=== PATIENT | female | born 1995 | race Caucasian/White ===

== ENCOUNTER 2016-12-23 10:16 | Inpatient (IN) | payer BC, OTHER ==
[2016-12-23] MEDS ORDERED: LIDOCAINE 1% (PF) 10 MG/ML (30 ML SDV) SQ PRN (12:12)
[2016-12-23] MEDS ORDERED: METHYLERGONOVINE 0.2 MG/ML 1 ML AMP IM PRN (12:12)
[2016-12-23] MEDS ORDERED: TERBUTALINE 1 MG/ML VIAL SQ PRN (12:12)
[2016-12-23] MEDS ORDERED: OXYTOCIN 10 UNIT/ML 1 ML VIAL IM PRN (12:12)
[2016-12-23] MEDS ORDERED: CARBOPROST TROMETHAMINE 250 MCG/ML 1 ML AMP IM PRN (12:12)
[2016-12-23] MEDS ORDERED: OXYTOCIN 30 UNITS/500 ML NS 30 UNIT in SALINE 1 500ML.BAG IV SCH (12:15)
[2016-12-23] MEDS ORDERED: LACTATED RINGERS 1,000 ML IV SCH (12:15)
[2016-12-23 12:27] LABS: Basophils % (A) 0 %; CH 29.4; CHCM 34.2; Eosinophils % (A) 0 %; HCT 41.8 % (34.0-46.0); HDW 2.76; HGB 13.9 gm/dL (11.4-16.0); Luc % (Auto) 1; Lymphocytes # (A) 1.6 k/uL (1.0-4.8); Lymphocytes % (A) 12 %; MCH 28.7 pg (25.0-35.0); MCHC 33.2 g/dL (31.0-37.0); MCV 86.6 fL (80.0-100.0); Mean Platelet Volume 7.4; Monocytes # (A) 0.6 k/uL (0-1.0); Monocytes % (A) 4 %; Neutrophils # (A) 11.8 k/uL (1.3-7.7); Neutrophils % (A) 82 %; RBC 4.83 m/uL (3.80-5.40); RDW 13.2 % (11.5-15.5); WBC 14.3 k/uL (3.8-10.6); WBC (Perox) 14.83
[2016-12-23 12:29] VITALS: BMI 43.4
[2016-12-23] MEDS: LACTATED RINGERS 1,000 ML IV SCH ×2 (12:56→18:42)
[2016-12-23] MEDS ORDERED: BUPIVACAINE (PF) 0.25% 30 ML VIAL ONE (13:00)
[2016-12-23] MEDS ORDERED: SODIUM CHLORIDE 0.9% 100 ML BAG ONE (13:00)
[2016-12-23] MEDS ORDERED: fentaNYL (PF) 50 MCG/ML 5 ML AMP ONE (13:00)
--- NOTE | 2016-12-23 13:27 | P.HPOB ---
History of Present Illness H&P Date: 12/23/16 Chief Complaint: Contractions. This patient is a pleasant 21-year-old 2 para 0 female estimated date of confinement 12/28/2016 estimated gestational age 39-2/7 weeks who presents to labor and delivery with complaints of regular contractions. Patient's cervix in the office couple days ago was closed is now 3-4 cm dilated and she is thought to be in early labor. care has been uncomplicated. Review of Systems Constitutional: Denies chills, Denies fever Ears, nose, mouth and throat: Denies headache, Denies sore throat Cardiovascular: Denies chest pain, Denies shortness of breath Respiratory: Denies cough Gastrointestinal: Reports heartburn Genitourinary: Reports Menstruation: Reports amenorrhea Musculoskeletal: Denies myalgias Integumentary: Denies pruritus, Denies rash Neurological: Denies numbness, Denies weakness Psychiatric: Denies anxiety, Denies depression Endocrine: Denies fatigue, Denies weight change Past Medical History Past Medical History: No Reported History History of Any Multi-Drug Resistant Organisms: None Reported Additional Past Surgical History / Comment(s): wisdom teeth age 18 Past Anesthesia/Blood Transfusion Reactions: No Reported Reaction Past Psychological History: No Psychological Hx Reported Smoking Status: Never smoker Past Alcohol Use History: None Reported Past Drug Use History: None Reported - Past Family History Mother Family Medical History: Diabetes Mellitus, Osteoarthritis (OA), Thyroid Disorder Medications and Allergies Home Medications Medication Instructions Recorded Confirmed Type No Known Home Medications [No 12/23/16 12/23/16 History Known Home Medications] Allergies Allergy/AdvReac Type Severity Reaction Status Date / Time No Known Allergies Allergy Verified 12/23/16 10:55 Exam - Vital Signs Vital signs: Vital Signs Temp Pulse Resp BP Pulse Ox 12/23/16 12:23 96.3 F L 83 17 133/76 100 Intake and Output 12/22/16 12/23/16 12/23/16 22:59 06:59 14:59 Other: # Voids 1 Weight 104.326 kg Patient Weight 12/24/16 06:59 Weight 104.326 kg - OBG Physical Exam Abdomen: bowel sounds normal Vulva: both: normal Vagina: normal moisture, no discharge Cervix: Cervix is 3-4 cm dilated 50% effaced -2 station. Uterus: enlarged (Fundal height is 38 cm.) Results blood work shows she is O positive, rubella immune, RPR nonreactive, HIV nonreactive, hepatitis B-, Glucola was normal, group B strep was negative, ultrasounds have been normal. Result Diagrams: 12/23/16 12:10 Abnormal Lab Results - Last 24 Hours (Table) 12/23/16 Range/Units 12:10 WBC 14.3 H (3.8-10.6) k/uL Neutrophils # 11.8 H (1.3-7.7) k/uL Assessment and Plan (1) Third trimester Narrative/Plan: This is a pleasant 21-year-old 2 para 0 female 39-2/7 weeks gestation who presents to labor and delivery in early active labor. Plan is artificial rupture membranes and anticipate vaginal delivery Status: Acute (2) Normal labor Status: Acute
[2016-12-23] MEDS ORDERED: ceFAZolin 2 GM in SODIUM CHLORIDE 0.9% 100 ML IVPB ONE (22:41)
[2016-12-23] MEDS ORDERED: CITRIC ACID-SODIUM CITRATE 15 ML CUP PO ONE (22:41)
[2016-12-23] MEDS ORDERED: MORPHINE SULFATE (PF) 0.3 MG/0.3 ML SYR ONE (22:50)
[2016-12-23] MEDS ORDERED: KETOROLAC 30 MG/ML 1 ML VIAL ONE (22:50)
[2016-12-23] MEDS ORDERED: ONDANSETRON 4 MG/2 ML VIAL ONE (22:50)
[2016-12-23] MEDS ORDERED: OXYTOCIN 10 UNIT/ML 1 ML VIAL IM ONE (22:50)
[2016-12-23] MEDS ORDERED: NALBUPHINE 10 MG/ML AMPUL ONE (22:50)
[2016-12-23] MEDS ORDERED: diphenhydrAMINE 50 MG/ML 1 ML VIAL IVP PRN (23:34)
[2016-12-23] MEDS ORDERED: METOCLOPRAMIDE 5 MG/ML 2 ML VIAL IVP PRN (23:34)
[2016-12-23] MEDS ORDERED: diphenhydrAMINE 25 MG CAP PO PRN (23:34)
[2016-12-23] MEDS ORDERED: ZOLPIDEM 5 MG TAB PO PRN (23:34)
[2016-12-23] MEDS ORDERED: SIMETHICONE 80 MG CHEWABLE PO PRN (23:34)
[2016-12-23] MEDS ORDERED: ACETAMINOPHEN TAB 325 MG TAB PO PRN (23:34)
--- NOTE | 2016-12-23 23:52 | P.OP ---
Date of Procedure: 12/23/16 Preoperative Diagnosis: #1: 39-2/7 weeks #2: Labor #3: Nonreassuring heart tones remote from delivery Postoperative Diagnosis: #1: Same. #2: Occiput posterior presentation Procedure(s) Performed: Primary low transverse section. Anesthesia: spinal Surgeon: Jameson Mcpherson Lead Javascript Developer #1: Eric Whitfield Estimated Blood Loss (ml): 600 Pathology: other (Placenta) Condition: stable Disposition: floor Indications for Procedure: Please see dictated H&P for intimate details of this patient's admission. Brief summary is a pleasant 21-year-old 2 para 0 female 39-2/7 weeks gestation admitted to labor and delivery in active labor. Patient does progress in labor gets to complete. Patient however began pushing and every time she began pushing had bradycardia to the 80s and 90s. This does resolve with position changes but the baby appears to be intolerant of pushing and she is remote from delivery. At this time I recommend she proceed with section. She does understand the surgery and risks including risks of infection, bleeding, possible injury to bowel, bladder, vessels, and other organs. She understands the risk of DVT and pulmonary embolism. All the patient's questions are answered written consent is obtained. Operative Findings: This is a vigorous viable female Apgars 9 and 9 delivery time was 2305 hrs. Infant was straight occiput posterior presentation. Description of Procedure: This patient is a Armijo catheter placed to straight drain. She subsequently taken to the operating room where she sat up and spinal anesthetic is administered without incident. An adequate level of anesthesia she has abdominal prep and drape. Scalpels and taken Pfannenstiel skin incision is made. A second scalpel is taken down the fascia and the fascia scored with a scalpel. Fascial incision extended bilaterally using the Nair scissors. The fascial incision is then dissected off the rectus muscles sharply. The peritoneum was then entered sharply. Bladder blade is then placed. Bladder peritoneum was then taken sharply off the lower uterine segment. Scalpels and taken a low transverse uterine incision is then made. Using a hemostat I into the uterus bluntly and there is loss of clear fluid this incision is extended bluntly. Infant's the be straight occiput posterior presentation was delivered up through the incision. Mouth and nares are bulb suctioned. Is no evidence of a nuchal cord. Then have delivery the anterior and posterior shoulder and rest this 's body. This is a vigorous viable female infant Apgars are 9 and 9 delivery time is 2305 hrs. After delivery of the the umbilical cord is doubly clamped and cut. The placenta is then manually extracted intact. Uterus is then externalized and uterine incision demarcated with Santana clamps. Uterus is then closed using 0 Vicryl running locked fashion 2 layers. Good hemostasis is noted. Bladder peritoneum was then reapproximated using a 3-0 Vicryl. Excess fluid is removed from and pelvis. Uterus tubes and ovaries appear normal for term gestation. Is done the uterus placed back into the abdomen. Parietal peritoneum was then closed using 0 Vicryl running fashion. Rectus muscles reapproximated in 0 Vicryl interrupted fashion. Fascia is then closed using 0 PDS. Fascial incision is intact and hemostatic. Subcutaneous tissues and closed using a 3-0 Vicryl. Skin is and closed using jaelyn and a sterile dressing is applied. All counts are correct 3. There are no complications. Infant and mother are taken the birthing suite in satisfactory condition.
[2016-12-24] MEDS: OXYTOCIN 30 UNITS/500 ML NS 30 UNIT in SALINE 1 500ML.BAG IV SCH ×3 (00:45→01:50)
[2016-12-24] MEDS ORDERED: METHYLERGONOVINE 0.2 MG/ML 1 ML AMP IM ONE (00:46)
[2016-12-24 01:05] LABS: Basophils % (A) 0 %; CH 29.3; CHCM 33.7; Eosinophils % (A) 0 %; HCT 29.3 % (34.0-46.0); HDW 2.71; Luc # (Auto) 0.08; Luc % (Auto) 0; Lymphocytes # (A) 0.9 k/uL (1.0-4.8); Lymphocytes % (A) 4 %; MCH 29.4 pg (25.0-35.0); MCHC 33.5 g/dL (31.0-37.0); MCV 87.7 fL (80.0-100.0); Mean Platelet Volume 8.3; Monocytes # (A) 0.9 k/uL (0-1.0); Monocytes % (A) 4 %; Neutrophils % (A) 92 %; RBC 3.34 m/uL (3.80-5.40); RDW 13.2 % (11.5-15.5); WBC 23.9 k/uL (3.8-10.6); WBC (Perox) 24.68
[2016-12-24 01:08] LABS: HGB 9.8 gm/dL (11.4-16.0)
--- NOTE | 2016-12-24 01:31 | P.PN ---
Progress Note - Text I was called to see the patient in regards to excessive vaginal bleeding, hypotension, and tachycardia. Examination shows uterine fundus to be high and a uterus and vault filled with clots consistent with uterine atony. Vigorous exploration and fundal massage expressed all the clots. Patient is given a dose of Methergine and IV Pitocin. This seemed to correct the vaginal bleeding. CBC shows hemoglobin 9.8 however I feel it is significantly lower therefore I do think she would benefit at this time due to her symptoms she received 2 units of packed red blood cells. I did discuss this with the patient and her and they agreed.
[2016-12-24] MEDS: LACTATED RINGERS 1,000 ML IV SCH ×3 (05:05→15:17)
--- NOTE | 2016-12-24 07:08 | P.PNOBGPC ---
Subjective - Subjective Patient reports: Reports appetite normal, Reports pain well controlled : doing well Objective - Vital Signs Latest vital signs: Vital Signs Temp Pulse Pulse Resp BP BP Pulse Ox 12/24/16 04:58 98.0 F 140 H 16 125/54 12/24/16 03:48 98.1 F 150 H 17 75/51 98 12/24/16 03:28 97.6 F 150 H 14 72/49 12/24/16 03:18 98.3 F 147 H 12 76/46 12/24/16 03:16 98.3 F 158 H 14 78/49 12/24/16 02:38 97.5 F L 163 H 18 72/50 99 12/24/16 02:08 98.2 F 158 H 14 78/48 12/24/16 01:58 97.6 F 139 H 14 82/52 12/24/16 01:30 97.9 F 160 H 16 82/49 100 12/24/16 01:00 150 H 14 116/68 99 12/24/16 00:55 118 H 12/24/16 00:52 128 H 16 108/65 99 12/24/16 00:48 131 H 12/24/16 00:47 141 H 16 108/64 12/24/16 00:30 155 H 16 119/72 97 12/24/16 00:15 150 H 16 71/50 12/24/16 00:00 105 H 14 117/66 12/23/16 23:45 102 H 16 116/64 90 L 12/23/16 23:30 97.0 F L 100 16 123/67 100 12/23/16 12:23 96.3 F L 83 17 133/76 100 Intake and Output 12/23/16 12/24/16 12/24/16 22:59 06:59 14:59 Intake Total 750 Balance 750 Intake: Intake, IV Titration 130 Amount Oxytocin 30 Units/500 ml 130 Ns 30 unit In Saline 1 500ml.bag @ 120 mls/hr IV .Q4H10M [facility] Rx#: [id number] Blood Product 620 Rc As-1 Unit 310 [id number] Rc Pheresis 2 As3 Unit 310 [id number] - Exam Lungs: bilateral: normal Chest: Normal S1, Normal S2 Extremities: Present: normal Abdomen: Present: normal appearance, soft. Absent: distention, tenderness Incision: Present: normal, intact Uterus: Present: normal, firm - Labs Labs: Abnormal Lab Results - Last 24 Hours (Table) 12/23/16 12/24/16 12/24/16 Range/Units 12:10 00:52 00:52 WBC 14.3 H 23.9 H (3.8-10.6) k/uL RBC 3.34 L (3.80-5.40) m/uL Hgb 9.8 L D (11.4-16.0) gm/dL Hct 29.3 L (34.0-46.0) % Neutrophils # 11.8 H 22.0 H (1.3-7.7) k/uL Lymphocytes # 0.9 L (1.0-4.8) k/uL Crossmatch See Detail Assessment and Plan (1) Third trimester Narrative/Plan: This is postoperative day #1. Per previous note, patient had a significant episode of uterine atony after her section with significant hemorrhage. Patient was given Methergine and IV Pitocin as well as evacuation of the clots with uterine massage. Patient had tachycardia and hypotension and therefore although her hemoglobin was 9.8 needed 2 units of packed red blood cells. Repeat CBC is pending. Patient's blood pressure is better this morning however she is still somewhat tachycardic which is expected. Patient is having good urine output. Uterus is firm nontender and her incision is intact and dry. Plan today is to continue the Armijo catheter until lunch to monitor her urine output, encourage ambulation with assistance, and continue close observation of her bleeding. There is no evidence of further bleeding at this time. Current Visit: Yes Status: Acute Code(s): Z33.1 - STATE, INCIDENTAL SNOMED Code(s): 65911079 (2) Normal labor Current Visit: Yes Status: Acute Code(s): O80 - ENCOUNTER FOR FULL-TERM UNCOMPLICATED DELIVERY; Z37.9 - OUTCOME OF DELIVERY, UNSPECIFIED SNOMED Code(s ): 54211667 (3) Atony of uterus with hemorrhage, delivered, current hospitalization Current Visit: Yes Status: Acute Code(s): O72.1 - OTHER IMMEDIATE HEMORRHAGE SNOMED Code(s): 20637934
[2016-12-24] MEDS: KETOROLAC 30 MG/ML 1 ML VIAL IVP PRN ×3 (07:23→20:52)
[2016-12-24] MEDS: ceFAZolin 2 GM in SODIUM CHLORIDE 0.9% 100 ML IVPB SCH ×2 (07:25→15:48)
[2016-12-24 08:01] LABS: CH 29.3; CHCM 33.7; HCT 29.7 % (34.0-46.0); HDW 2.88; HGB 9.9 gm/dL (11.4-16.0); MCH 29.1 pg (25.0-35.0); MCHC 33.4 g/dL (31.0-37.0); MCV 87.1 fL (80.0-100.0); Mean Platelet Volume 8.1; RBC 3.41 m/uL (3.80-5.40); RDW 14.2 % (11.5-15.5)
[2016-12-24] MEDS: IRON AG/C/B12/CA/SUC.ACID/STOM 1 EACH TAB PO SCH (08:05)
[2016-12-24] MEDS: METHYLERGONOVINE 0.2 MG TAB PO SCH ×3 (08:14→23:07)
[2016-12-24 08:17] LABS: WBC 31.6 k/uL (3.8-10.6)
[2016-12-24 08:38] LABS: Add Differential Manual Differential
[2016-12-24 08:42] LABS: Band Neutrophils % 9.5 %; Manual Review Performed; Nucleated Red Blood Cells 0 /100 WBC (0-0); Total Cells Counted 200
[2016-12-24] MEDS: SENNOSIDES-DOCUSATE SODIUM 1 EACH TAB PO SCH ×2 (09:00→20:52)
[2016-12-24] MEDS ORDERED: METHYLERGONOVINE 0.2 MG TAB PO SCH (09:00)
--- NOTE | 2016-12-24 12:57 | P.PN ---
Progress Note - Text Date:12/24 Time:1232 Patient is status post . Patient seen this morning with VAS score of 3.no c/o of pruritus, c/o nausea/vomiting, comfortable and doing well today.
[2016-12-24] MEDS ORDERED: ONDANSETRON 4 MG/2 ML VIAL IVP PRN (13:02)
[2016-12-24] MEDS ORDERED: MORPHINE SULFATE 4 MG/ML SYRINGE IVP PRN (13:02)
[2016-12-24] MEDS ORDERED: NALOXONE 0.4 MG/ML 1 ML VIAL IV PRN (13:02)
[2016-12-24] MEDS ORDERED: NALBUPHINE 10 MG/ML AMPUL IV PRN (13:02)
[2016-12-24] MEDS ORDERED: Acetaminophen-Codeine 300-30mg TAB PO PRN (13:22)
[2016-12-24 16:24] VITALS: RESP 16
[2016-12-25] MEDS ORDERED: ceFAZolin 2 GM in SODIUM CHLORIDE 0.9% 100 ML IVPB SCH ×2
[2016-12-25] MEDS: Acetaminophen-Codeine 300-30mg TAB PO PRN ×3 (01:06→21:01)
[2016-12-25] MEDS: LACTATED RINGERS 1,000 ML IV SCH (06:02)
--- NOTE | 2016-12-25 07:43 | P.PNOBGPC ---
Subjective - Subjective Patient reports: Reports appetite normal, Reports voiding normally, Reports pain well controlled, Reports ambulating normally : doing well Objective - Vital Signs Latest vital signs: Vital Signs Temp Pulse Resp BP Pulse Ox 12/25/16 00:00 97.0 F L 139 H 16 108/54 12/24/16 20:00 97.6 F 133 H 16 125/65 12/24/16 16:00 98.8 F 141 H 16 128/60 99 12/24/16 12:00 99.2 F 131 H 17 119/65 99 12/24/16 09:51 139 H 18 118/67 98 Intake and Output 12/24/16 12/25/16 12/25/16 22:59 06:59 14:59 Output Total 600 750 700 Balance -600 -750 -700 Output: Urine 600 750 700 Uretheral (Armijo) 750 Other: # Voids 0 - Exam Lungs: bilateral: normal Chest: Normal S1, Normal S2 Extremities: Present: normal Abdomen: Present: normal appearance, soft. Absent: distention, tenderness Incision: Present: normal, dry, intact Uterus: Present: normal, firm - Labs Labs: Abnormal Lab Results - Last 24 Hours (Table) 12/24/16 Range/Units 07:25 WBC 31.6 H* (3.8-10.6) k/uL RBC 3.41 L (3.80-5.40) m/uL Hgb 9.9 L (11.4-16.0) gm/dL Hct 29.7 L (34.0-46.0) % Neutrophils # (Manual) 28.9 H (1.3-7.7) k/uL Monocytes # (Manual) 1.1 H (0-1.0) k/uL Assessment and Plan (1) Third trimester Narrative/Plan: Postoperative day #2. Vital signs are stable and she is afebrile. Uterus is firm nontender and her incision is intact and dry. CBC yesterday did show her hemoglobin to be stable her white count was elevated but this was expected. I did continue her on antibiotics but she has no evidence of infection at this time. Plan is to check a CBC today, discontinue her antibiotics, and continue routine care. Current Visit: Yes Status: Acute Code(s): Z33.1 - STATE, INCIDENTAL SNOMED Code(s): 94414548 (2) Normal labor Current Visit: Yes Status: Acute Code(s): O80 - ENCOUNTER FOR FULL-TERM UNCOMPLICATED DELIVERY; Z37.9 - OUTCOME OF DELIVERY, UNSPECIFIED SNOMED Code(s ): 12237825 (3) Atony of uterus with hemorrhage, delivered, current hospitalization Current Visit: Yes Status: Acute Code(s): O72.1 - OTHER IMMEDIATE HEMORRHAGE SNOMED Code(s): 64435225
[2016-12-25 08:04] LABS: Basophils % (A) 0 %; CH 29.2; CHCM 33.3; Eosinophils % (A) 0 %; HCT 21.2 % (34.0-46.0); HDW 2.94; Luc % (Auto) 1; Lymphocytes # (A) 1.8 k/uL (1.0-4.8); Lymphocytes % (A) 10 %; MCH 28.9 pg (25.0-35.0); MCHC 32.8 g/dL (31.0-37.0); Monocytes # (A) 0.9 k/uL (0-1.0); Monocytes % (A) 5 %; Neutrophils # (A) 14.4 k/uL (1.3-7.7); Neutrophils % (A) 83 %; RBC 2.41 m/uL (3.80-5.40); RDW 14.7 % (11.5-15.5); WBC 17.3 k/uL (3.8-10.6); WBC (Perox) 18.13
[2016-12-25 08:09] LABS: HGB 6.9 gm/dL (11.4-16.0)
[2016-12-25] MEDS: IBUPROFEN 600 MG TAB PO PRN ×3 (08:16→23:41)
[2016-12-25] MEDS: SENNOSIDES-DOCUSATE SODIUM 1 EACH TAB PO SCH ×2 (08:17→20:59)
[2016-12-25] MEDS: IRON AG/C/B12/CA/SUC.ACID/STOM 1 EACH TAB PO SCH (08:49)
[2016-12-26] MEDS: Acetaminophen-Codeine 300-30mg TAB PO PRN (06:09)
--- NOTE | 2016-12-26 06:44 | P.PNOBGPC ---
Subjective - Subjective Patient reports: Reports appetite normal, Reports voiding normally, Reports pain well controlled, Reports ambulating normally : doing well Objective - Vital Signs Latest vital signs: Vital Signs Temp Pulse Resp BP Pulse Ox 12/25/16 23:57 98.7 F 129 H 16 125/65 12/25/16 16:00 98.8 F 129 H 16 126/72 100 12/25/16 08:27 98.5 F 134 H 16 104/53 Intake and Output 12/25/16 12/25/16 12/26/16 14:59 22:59 06:59 Output Total 1250 Balance -1250 Output: Urine 1250 Other: # Voids 1 2 - Exam Lungs: bilateral: normal Chest: Normal S1, Normal S2 Extremities: Present: normal Abdomen: Present: normal appearance, soft. Absent: distention, tenderness Incision: Present: normal, dry, intact Uterus: Present: normal, firm - Labs Labs: Abnormal Lab Results - Last 24 Hours (Table) 12/25/16 Range/Units 07:49 WBC 17.3 H (3.8-10.6) k/uL RBC 2.41 L (3.80-5.40) m/uL Hgb 6.9 L* D (11.4-16.0) gm/dL Hct 21.2 L (34.0-46.0) % Neutrophils # 14.4 H (1.3-7.7) k/uL Assessment and Plan (1) Third trimester Narrative/Plan: Postoperative day 3. Patient is resting without complaints. Uterus is firm nontender and her incision is intact and dry. Hemoglobin yesterday was 6.9 and white count went down to 17. Today it is pending. I feel this most recent CBC is accurate reflection of her current status. Patient is ambulating and urinating without difficulty. She is adequate pain control. Patient does wish to go home today. My impression is that this patient is stable for discharge home. We'll continue routine care this morning and check a CBC discharge home later this morning. Current Visit: Yes Status: Acute Code(s): Z33.1 - STATE, INCIDENTAL SNOMED Code(s): 78249882 (2) Normal labor Current Visit: Yes Status: Acute Code(s): O80 - ENCOUNTER FOR FULL-TERM UNCOMPLICATED DELIVERY; Z37.9 - OUTCOME OF DELIVERY, UNSPECIFIED SNOMED Code(s ): 29076742 (3) Atony of uterus with hemorrhage, delivered, current hospitalization Current Visit: Yes Status: Acute Code(s): O72.1 - OTHER IMMEDIATE HEMORRHAGE SNOMED Code(s): 26181002
--- NOTE | 2016-12-26 06:48 | P.DS ---
Providers Date of admission: 12/23/16 11:26 Expected date of discharge: 12/26/16 Attending physician: Jameson Mcpherson Primary care physician: Stated None - Discharge Diagnosis(es) (1) Third trimester Current Visit: Yes Status: Acute (2) Normal labor Current Visit: Yes Status: Acute (3) Atony of uterus with hemorrhage, delivered, current hospitalization Current Visit: Yes Status: Acute Hospital Course: Please see dictated H&P for intimate details of this patient's condition. Brief summary this pleasant 21-year-old 2 para 0 female admitted to labor and delivery in active labor. Patient's subsequent goes on to have a primary section for persistent occiput posterior presentation and nonreassuring heart tones. Immediately patient did have episode of severe uterine atony with significant blood loss requiring 2 units of packed red blood cells. Patient was given IV antibiotics at that time as well. She subsequently did well after this and by postoperative 3 was felt to be stable for discharge home. He will return this dictation was 6.9. Patient is discharged home to see me on Monday. It had a long discussion with her and her about her anemia is activity restrictions. Procedures: Primary low transverse section. Patient Condition at Discharge: Fair Plan - Discharge Summary New Discharge Prescriptions: Acetaminophen-Codeine 300-30mg [Tylenol w/codeine #3] 1 - 2 each PO Q4HR PRN # 40 tab PRN Reason: Pain 1-5 Ibuprofen [Motrin] 600 mg PO Q6HR PRN #40 tab PRN Reason: Mild Pain Or Fever >= 100.5 Iron Ag/C/B12/Ca/Suc.acid/Stom [Chromagen LF] 1 each PO DAILY #30 tab Discharge Medication List Acetaminophen-Codeine 300-30mg [Tylenol w/codeine #3] 1 - 2 each PO Q4HR PRN # 40 tab 12/26/16 [Rx] Ibuprofen [Motrin] 600 mg PO Q6HR PRN #40 tab 12/26/16 [Rx] Iron Ag/C/B12/Ca/Suc.acid/Stom [Chromagen LF] 1 each PO DAILY #30 tab 12/26/16 [ Rx] Follow up Appointment(s)/Referral(s): Jameson Mcpherson MD [STAFF PHYSICIAN] - 1 Week Patient Instructions/Handouts: Anemia (DC), (DC) Activity/Diet/Wound Care/Special Instructions: No strenuous activity or heavy lifting for 6 weeks. Please call if any fever, chills, excessive vaginal bleeding, and/or abdominal pain. Discharge Disposition: HOME SELF-CARE
[2016-12-26 08:06] LABS: Basophils % (A) 0 %; CH 28.9; CHCM 32.7; Eosinophils % (A) 0 %; HDW 2.88; Luc # (Auto) 0.24; Luc % (Auto) 2; Lymphocytes # (A) 2.1 k/uL (1.0-4.8); Lymphocytes % (A) 17 %; MCH 28.6 pg (25.0-35.0); MCHC 32.2 g/dL (31.0-37.0); MCV 88.9 fL (80.0-100.0); Monocytes # (A) 0.5 k/uL (0-1.0); Monocytes % (A) 4 %; Neutrophils # (A) 9.4 k/uL (1.3-7.7); Neutrophils % (A) 77 %; RBC 2.13 m/uL (3.80-5.40); RDW 14.2 % (11.5-15.5); WBC 12.2 k/uL (3.8-10.6); WBC (Perox) 12.69
[2016-12-26 08:17] LABS: HCT 18.9 % (34.0-46.0); HGB 6.1 gm/dL (11.4-16.0)
[2016-12-26] MEDS: SENNOSIDES-DOCUSATE SODIUM 1 EACH TAB PO SCH (08:44)
[2016-12-26] MEDS: IRON AG/C/B12/CA/SUC.ACID/STOM 1 EACH TAB PO SCH (08:44)
[2016-12-26 09:17] VITALS: BP 114/61; PULSE 114; TEMP 97.5
== END 2016-12-26 13:38 | disposition home or self-care (01) | DRG 765 ==
LOC: FBPOP 10:16 → 4FBP 11:26
PROVIDERS: ADMIT Obstetrics & Gynecology; ATTEND Obstetrics & Gynecology
PROC: 10D00Z1 Extraction of Products of Conception, Low, Open Approach (ICD-10-PCS; principal; 2016-12-23 22:50)
PROC: 30233N1 Transfusion of Nonautologous Red Blood Cells into Peripheral Vein, Percutaneous Approach (ICD-10-PCS; 2016-12-24)
DX: O76 Abnormality in fetal heart rate and rhythm complicating labor and delivery (principal); O72.1 Other immediate postpartum hemorrhage; O99.02 Anemia complicating childbirth; D64.9 Anemia, unspecified; Z37.0 Single live birth; Z3A.39 39 weeks gestation of pregnancy
CPT/HCPCS: 85025; 86850; 86900; 86901; 86920; 88307

== ENCOUNTER 2018-07-20 00:13 | Emergency (ER) | payer BC, OTHER ==
[2018-07-20 00:34] VITALS: BP 137/93; PULSE 102; RESP 18; TEMP 98.2
== END 2018-07-20 01:25 ==
LOC: EC 00:13
DX: Z02.9 Encounter for administrative examinations, unspecified (principal); M79.604 Pain in right leg

== ENCOUNTER 2019-06-26 12:11 | Emergency (ER) | payer OTHER ==
[2019-06-26 12:25] VITALS: BP 129/104; PULSE 106; RESP 16; TEMP 98.7
--- NOTE | 2019-06-26 12:50 | XR ---
EXAMINATION TYPE: XR ankle complete RT DATE OF EXAM: 06/26/2019 COMPARISON: NONE HISTORY: 24-year-old female and swelling after rolling injury TECHNIQUE: 3 views FINDINGS: Ankle mortise is congruent however, there is slight loss of the distal tibiofibular overlap. Mild ant erior soft tissue swelling is noted. Talar dome is intact. Small delineation to the Achilles tendon. Subtalar joint alignment. No acute fracture, subluxation, dislocation. IMPRESSION: Slight loss of the distal tibiofibular overlap on the mortise view. Correlate for possible high ankle sprain.
--- NOTE | 2019-06-26 13:02 | ED ---
Lower Extremity Injury HPI - General Chief Complaint: Extremity Injury, Lower Stated Complaint: Ankle injury-[facility] Time Seen by Provider: 06/26/19 12:21 Source: patient, RN notes reviewed Mode of arrival: ambulatory Limitations: no limitations - History of Present Illness Initial Comments: 24-year-old female presents emergency Department with chief complaint of right ankle injury. Patient states she was transported patient states that she stepped another home and rolled her ankle. Patient placed in Jorge wrap on it which initially helped but states is more sore now. Patient had no prior ankle injuries no paresthesias no pain proximal to her right ankle. - Related Data Home Medications Medication Instructions Recorded Confirmed Acetaminophen Tab [Tylenol Tab] 1,000 mg PO Q6HR PRN 06/26/19 06/26/19 Multivitamins, Thera [Multivitamin 1 tab PO DAILY 06/26/19 06/26/19 (formulary)] Previous Rx's Medication Instructions Recorded Ibuprofen [Motrin] 600 mg PO Q8HR PRN #30 tab 06/26/19 Allergies Allergy/AdvReac Type Severity Reaction Status Date / Time cephalexin [From Keflex] Allergy Rash/Hives Verified 06/26/19 12:31 Review of Systems ROS Statement: Those systems with pertinent positive or pertinent negative responses have been documented in the HPI. ROS Other: All systems not noted in ROS Statement are negative. Past Medical History Past Medical History: No Reported History History of Any Multi-Drug Resistant Organisms: None Reported Past Surgical History: Section Additional Past Surgical History / Comment(s): wisdom teeth age 18, salivary duct Past Anesthesia/Blood Transfusion Reactions: No Reported Reaction Past Psychological History: No Psychological Hx Reported Smoking Status: Never smoker Past Alcohol Use History: None Reported Past Drug Use History: None Reported - Past Family History Mother Family Medical History: Diabetes Mellitus, Osteoarthritis (OA), Thyroid Disorder General Exam Limitations: no limitations General appearance: alert, in no apparent distress Head exam: Present: atraumatic, normocephalic, normal inspection Neck exam: Present: normal inspection. Absent: tenderness, meningismus, lymphadenopathy Respiratory exam: Present: normal lung sounds bilaterally. Absent: respiratory distress, wheezes, rales, rhonchi, stridor Cardiovascular Exam: Present: regular rate, normal rhythm, normal heart sounds. Absent: systolic murmur, diastolic murmur, rubs, gallop, clicks Extremities exam: Present: other (Right ankle tenderness to lateral malleoli region, neurovascular intact no foot tenderness no proximal tib-fib tenderness) Back exam: Absent: CVA tenderness (R), CVA tenderness (L) Neurological exam: Present: alert, oriented X3, CN II-XII intact Course Vital Signs 06/26/19 12:21 Temperature 98.7 F Pulse Rate 106 H Respiratory 16 Rate Blood Pressure 129/104 O2 Sat by Pulse 98 Oximetry Medical Decision Making - Medical Decision Making 24-year-old female presents emergency Department for right ankle injury. Patient has a right ankle sprain she is neurovascularly intact. Patient will be discharged return parameters were discussed. Disposition Clinical Impression: Right ankle sprain Disposition: HOME SELF-CARE Condition: Stable Instructions (If sedation given, give patient instructions): Ankle Sprain (ED) Additional Instructions: Please return to the Emergency Department if symptoms worsen or any other concerns. Prescriptions: Ibuprofen [Motrin] 600 mg PO Q8HR PRN #30 tab PRN Reason: Pain Is patient prescribed a controlled substance at d/c from ED?: No Referrals: None,Stated [Primary Care Provider] - 1-2 days Time of Disposition: 13:01
== END 2019-06-26 13:10 | disposition home or self-care (01) ==
LOC: EC 12:11
DX: S93.401A Sprain of unspecified ligament of right ankle, initial encounter (principal); Z88.1 Allergy status to other antibiotic agents; X50.1XXA Overexertion from prolonged static or awkward postures, initial encounter; Y93.01 Activity, walking, marching and hiking; Y92.89 Other specified places as the place of occurrence of the external cause; Y99.0 Civilian activity done for income or pay
CPT/HCPCS: 99283

== ENCOUNTER 2021-03-09 15:49 | Emergency (ER) | payer OTHER ==
[2021-03-09 16:32] VITALS: BP 135/95; PULSE 103; RESP 20; TEMP 97.9
--- NOTE | 2021-03-09 16:50 | XR ---
EXAMINATION TYPE: XR shoulder complete LT DATE OF EXAM: 03/09/2021 COMPARISON: NONE HISTORY: Shoulder pain TECHNIQUE: 3 views FINDINGS: I see no fracture nor dislocation. Glenohumeral joint is intact. Soft tissues appear normal . There are no pathologic calcifications. IMPRESSION: Negative left shoulder exam.
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
== END 2021-03-09 17:34 | disposition home or self-care (01) ==
LOC: EC 15:49
DX: S49.92XA Unspecified injury of left shoulder and upper arm, initial encounter (principal); F17.290 Nicotine dependence, other tobacco product, uncomplicated; W50.0XXA Accidental hit or strike by another person, initial encounter; Z79.1 Long term (current) use of non-steroidal anti-inflammatories (NSAID)
CPT/HCPCS: 99283

== ENCOUNTER → 2022-07-23 | Outpatient (CLI) | payer BC | END | disposition home or self-care (01) | LOC: LABWHC1 08:51 | PROVIDERS: ATTEND Obstetrics & Gynecology | DX: Z53.9 Procedure and treatment not carried out, unspecified reason (principal) ==

== ENCOUNTER → 2022-12-19 | Outpatient (CLI) | payer BC ==
--- NOTE | 2022-12-20 09:55 | FL ---
EXAMINATION TYPE: FL hysterosalpingography DATE OF EXAM: 12/19/2022 CLINICAL HISTORY: Secondary infertility. History of unable to get for roughly 2 years. TECHNIQUE: Fluoroscopy. COMPARISON: None. FINDINGS: Fluoroscopic guidance was provided during hysterosalpingogram procedure performed by jacob gil A total of 1 minute 55 seconds of fluoroscopic time was utilized during the procedure and 6 spot images are acquired. Procedure explained to patient. Benefits, alternatives, and risks were discussed. Informed consent wa s obtained. Preprocedure feeder operator image shows no obvious abnormality. Speculum was introduced using sterile techniqu e. The cervical os was cleansed with Betadine. Procedure was difficult as cervical during attempted m anipulation and passage of catheter always pointed posterior and inferior with difficulty maintaining position to advance catheter. Catheter was inflated once in the vaginal canal with successful contra st opacification of the vagina extending into the uterus. There is free flow and spillage from the ri ght fallopian tube which appears within normal limits. Uterine contour appears within normal limits. Partial visualization of left fallopian tube noted. Recurrent injection was unsuccessful and lead to contrast leak. At this point catheter was reinserted successfully into the endometrial canal. There i s unsuccessful filling of the endometrium along with again right fallopian tube with free spill. Ther e is then eventual complete fill of the left fallopian tube with some free spillage identified. At this point balloon is deflated and catheter is removed. Speculum was removed. Patient tolerated procedure well without any immediate complication. Patient was kept in the radiolog y Department for short stay after procedure and then discharged home in stable and satisfactory condi tion. IMPRESSION: As Above.
== END | disposition home or self-care (01) ==
LOC: RADUSWWP 12:38
PROVIDERS: ATTEND Obstetrics & Gynecology
DX: N97.9 Female infertility, unspecified (principal)
CPT/HCPCS: 58340; 74740; Q9967

== ENCOUNTER 2024-02-20 11:41 | Outpatient (CLI) | payer BC, OTHER ==
[2024-02-20 12:55] LABS: Basophils % (A) 0 %; Eosinophils % (A) 0 %; HCT 36.8 % (34.0-46.0); HGB 12.3 gm/dL (11.4-16.0); Lymphocytes # (A) 1.5 k/uL (1.0-4.8); Lymphocytes % (A) 12 %; MCH 29.3 pg (25.0-35.0); MCHC 33.5 g/dL (31.0-37.0); MCV 87.4 fL (80.0-100.0); Mean Platelet Volume 9.1; Monocytes # (A) 0.7 k/uL (0-1.0); Monocytes % (A) 6 %; Neutrophils # (A) 10.4 k/uL (1.3-7.7); Neutrophils % (A) 81 %; Platelet Count 259 k/uL (150-450); RBC 4.21 m/uL (3.80-5.40); RDW 13.7 % (11.5-15.5); WBC 12.8 k/uL (3.8-10.6)
[2024-02-20 13:09] LABS: ALT 24 U/L (4-34); AST 22 U/L (14-36); African American GFR (CKD) >90 (>60 ml/min/1.73 sqM); Blood Urea Nitrogen 9 mg/dL (7-17); LDH 167 U/L (120-246); Non-African American GFR(CKD) >90 (>60 ml/min/1.73 sqM); Uric Acid 4.4 mg/dL (3.7-7.4)
[2024-02-20 13:27] LABS: Appearance,Urine Cloudy (Clear); Bilirubin,Urine Negative (Negative); Blood,Urine Negative (Negative); Color,Urine Colorless; Glucose,Urine (UA) Negative (Negative); Ketones,Urine Negative (Negative); Leukocyte Esterase,Urine Negative (Negative); Nitrite,Urine Negative (Negative); Protein,Urine Negative (Negative); RBC,Urine 1 /hpf (0-5); Specific Gravity,Urine 1.003 (1.001-1.035); Squamous Epithelial Cell,Urine 4 /hpf (0-4); Urobilinogen,Urine <2.0 mg/dL (<2.0); WBC,Urine 3 /hpf (0-5)
[2024-02-20 14:07] LABS: Creatinine,Urine Random 17.1 mg/dL; Protein/Creatinine Ratio,Urine 0.819
[2024-02-20 16:03] VITALS: BP 142/93; PULSE 111; RESP 16; TEMP 97.2
--- NOTE | 2024-02-23 11:03 | P.MSEPDOC ---
Presenting Problems - Arrival Data Date of Arrival on Unit: 02/20/24 Time of Arrival on Unit: 11:41 Mode of Transport: Ambulatory - Complaint OB-Reason for Admission/Chief Complaint: PIH Medical History - Information : 4 Para: 1 Term: 1 : 0 Abortions: Spontaneous or Elective: 2 Number of Living Children: 1 - Gestational Age Gestational Age by ASYA (wks/days): 36 Weeks and 6 Days Review of Systems - Review of Systems Constitutional: No problems Breast: No problems ENT: No problems Cardiovascular: No problems Respiratory: No problems Gastrointestinal: No problems Genitourinary: No problems Musculoskeletal: No problems Neurological: No problems Skin: No problems Vital Signs - Temperature Temperature: 97.2 F Temperature Source: Axillary - Pulse Right Brachial Pulse Rate: 111 Pulse Assessment Method: Automatic Cuff - Respirations Respiratory Rate: 16 Oxygen Delivery Method: Room Air - Blood Pressure Right Arm Blood Pressure: 142/93 Blood Pressure Mean: 109 Blood Pressure Source: Automatic Cuff Medical Screen Scoring - Assessment - Baby A Baseline FHR: 125 Heart Rate - NICHD Category: Category I (Normal) NST: Reactive Physician Notification - Physician Notified Physician Notified Date: 02/20/24 Physician Notified Time: 12:16 Physician: Eric Whitfield Order Received: Yes - Notification Comment Comment: d/c home Maternal Triage Index - Maternal Triage Index Presenting for scheduled procedure w/no complaint: No - Stat/Priority 1 Stat Priority 1: No - Urgent/Priority 2 Urgent Priority 2: No - Prompt/Priority 3 Prompt Priority 3: Yes Criteria Met for Priority 3: B/P 142/93. B/P 135/84. B/P 124/70. asymptomatic Disposition - Disposition OB Disposition: Discharge to home Discharge Date: 02/20/24 Discharge Time: 14:23 I agree with the RN Medical Screening Exam: Yes Physician's MSE Comment: I have neither seen nor examined the patient. Case reviewed; plan agreed upon as documented in EMR&OBIX.: Yes Diagnosis: RELATED CONDITIONS, UNSPECIFIED, THIRD TRIMESTER
== END 2024-02-20 14:23 | disposition home or self-care (01) ==
LOC: FBPOP 11:41
PROVIDERS: ATTEND Obstetrics & Gynecology
DX: O13.3 Gestational [pregnancy-induced] hypertension without significant proteinuria, third trimester (principal); Z3A.36 36 weeks gestation of pregnancy; Z88.1 Allergy status to other antibiotic agents
CPT/HCPCS: 59025; 81001; 82565; 82570; 83615; 84156; 84450; 84460; 84520; 84550; 85025; 99215

== ENCOUNTER 2024-02-29 14:59 | Inpatient (IN) | payer BC, OTHER ==
[2024-02-29] MEDS ORDERED: miSOPROStoL 200 MCG TAB PO PRN (15:37)
[2024-02-29] MEDS ORDERED: GENTAMICIN IVPB ONE (15:37)
[2024-02-29] MEDS ORDERED: TRANEXAMIC 1,000 MG/100ML-NACL 1,000 MG in EMPTY BAG 1 BAG IV PRN (15:37)
[2024-02-29] MEDS ORDERED: METHYLERGONOVINE 0.2 MG/ML 1 ML AMP IM PRN (15:37)
[2024-02-29] MEDS ORDERED: OXYTOCIN 10 UNIT/ML 1 ML VIAL IM PRN (15:37)
[2024-02-29] MEDS ORDERED: CARBOPROST TROMETHAMINE 250 MCG/ML 1 ML AMP IM PRN (15:37)
[2024-02-29] MEDS ORDERED: SODIUM CHLORIDE 0.9% IVPB ONE (15:37)
[2024-02-29] MEDS: LACTATED RINGERS 1,000 ML IV ONE (15:54)
[2024-02-29 16:21] LABS: Basophils % (A) 0 %; Eosinophils % (A) 0 %; HCT 38.6 % (34.0-46.0); HGB 12.9 gm/dL (11.4-16.0); Lymphocytes # (A) 1.7 k/uL (1.0-4.8); Lymphocytes % (A) 15 %; MCH 29.1 pg (25.0-35.0); MCHC 33.4 g/dL (31.0-37.0); MCV 87.2 fL (80.0-100.0); Mean Platelet Volume 9.9; Monocytes # (A) 0.6 k/uL (0-1.0); Monocytes % (A) 5 %; Neutrophils # (A) 8.8 k/uL (1.3-7.7); Neutrophils % (A) 78 %; Platelet Count 266 k/uL (150-450); RBC 4.42 m/uL (3.80-5.40); RDW 13.9 % (11.5-15.5); WBC 11.2 k/uL (3.8-10.6)
[2024-02-29 16:25] LABS: Appearance,Urine Cloudy (Clear); Bacteria,Urine Rare /hpf; Bilirubin,Urine Negative (Negative); Blood,Urine Negative (Negative); Color,Urine Colorless; Glucose,Urine (UA) Negative (Negative); Ketones,Urine Negative (Negative); Leukocyte Esterase,Urine Trace (Negative); Mucus,Urine Rare /hpf; Nitrite,Urine Negative (Negative); Protein,Urine Negative (Negative); RBC,Urine 2 /hpf (0-5); Specific Gravity,Urine 1.005 (1.001-1.035); Squamous Epithelial Cell,Urine 18 /hpf (0-4); Urobilinogen,Urine <2.0 mg/dL (<2.0); WBC,Urine 6 /hpf (0-5)
[2024-02-29 16:31] LABS: ALT 26 U/L (4-34); AST 23 U/L (14-36); African American GFR (CKD) >90 (>60 ml/min/1.73 sqM); Blood Urea Nitrogen 10 mg/dL (7-17); LDH 148 U/L (120-246); Non-African American GFR(CKD) >90 (>60 ml/min/1.73 sqM); Uric Acid 4.6 mg/dL (3.7-7.4)
[2024-02-29 16:40] LABS: INR 0.8 (<1.2); Prothrombin Time 9.5 sec (10.0-12.5)
[2024-02-29] MEDS: CITRIC ACID-SODIUM CITRATE 15 ML CUP PO ONE (17:29)
[2024-02-29] MEDS: CLINDAMYCIN 900 MG in DEXTROSE 5% IN WATER 50 ML IVPB ONE (17:29)
[2024-02-29] MEDS: LACTATED RINGERS 1,000 ML IV SCH ×2 (17:30→23:45)
[2024-02-29] MEDS: GENTAMICIN 400 MG in SODIUM CHLORIDE 0.9% 100 ML IVPB ONE (17:54)
[2024-02-29] MEDS ORDERED: NALBUPHINE 10 MG/ML (10 ML MDV) ONE (18:01)
[2024-02-29] MEDS ORDERED: ONDANSETRON 4 MG/2 ML VIAL ONE (18:01)
[2024-02-29] MEDS ORDERED: MORPHINE SULFATE (PF) 0.3 MG/0.3 ML SYR ONE (18:01)
[2024-02-29] MEDS ORDERED: OXYTOCIN 30 UNITS/500 ML NS BAG IV ONE (18:01)
--- NOTE | 2024-02-29 18:54 | P.OP ---
Date of Procedure: 02/29/24 Preoperative Diagnosis: IUP at 38-1/7 weeks, gestational hypertension, history of x 1, desires repeat Postoperative Diagnosis: Same Procedure(s) Performed: Repeat section Anesthesia: spinal Surgeon: Dione Tilley Acetylene Cutter #1: Yeimy Velez Estimated Blood Loss (ml): 310 IV fluids (ml): 700 Urine output (ml): 150 (Clear yellow) Pathology: other (Placenta) Condition: stable Disposition: observation Indications for Procedure: 29-year-old G4, P1 at 30-1/7 weeks with noted elevated blood pressures. Given patient's diagnosis of gestational hypertension recommendation is made for delivery. Patient has noted to be symptomatic with a headache in addition. Patient has a prior history of a section and desires repeat. Operative Findings: Normal uterus tubes and ovaries were appreciated, vacuum assist delivery of a viable female at 1822, weight of 6 pounds 8 ounces, Apgars of 8 and 9 at 1 and 5 minutes respectively. Description of Procedure: The patient was prepped and draped in the usual fashion after spinal anesthesia was administered by anesthesia department. A Pfannenstiel incision was made and extended of the abdominal cavity without difficulty. The bladder peritoneum was elevated and incised and reflected distally. A 2 cm incision was made in the transverse plane of the lower uterine segment to enter the uterus at which time clear fluid was noted. The incision was extended in both directions using the bandage scissors. The head was encountered within the field and delivered up and through the incision via vacuum assist, where the nose and mouth were thoroughly suctioned. Remainder of the infant was delivered onto the surgical field where the cord was doubly clamped, cut, and the was passed for resuscitative measures with weight and Apgars as noted above. The placenta was delivered manually, intact, and was grossly normal with a grossly normal three- vessel cord. The uterus was exteriorized and the interior cavity of the uterus swept of any remaining placental and membranous fragments with a laparotomy sponge. The margins of the incision were grasped with Santana clamps and the incision closed in 2 layers. First layer was a running locking layer of 0 Vicryl from margin to margin followed by a second layer of imbricating 0 Vicryl from margin to margin. Any small points of bleeding were then made hemostatic with the Bovie. Once hemostasis was achieved, the posterior cul-de-sac was suctioned with a guard and the uterine and ovarian findings are as noted above. The uterus was replaced within the abdominal cavity and the gutters swept of any remaining blood fluid or clot. The incision was again reexamined and hemostasis was noted to be excellent. Any small point of bleeding were made hemostatic with the Bovie. Once hemostasis was achieved the parietal peritoneum was loosely reapproximated. The layer of muscles were examined and made hemostatic with the Bovie. Attention was then turned to the fascia which was closed with a running stitches of 0 Vicryl proceeding from 1 lateral edge to the other. The subcutaneous tissues were irrigated, made hemostatic with the Bovie, and reapproximated with a running stitch of 30 Vicryl. The skin was reapproximated with 4-0 Vicryl. Estimated blood loss for the case was approximately 310 mL. All sponge instrument and needle counts are correct. There were no complications. The patient tolerated the procedure well and proceeded to the recovery room in stable condition. Both mother and infant are resting comfortably in recovery.
--- NOTE | 2024-02-29 18:55 | P.HPOB ---
History of Present Illness H&P Date: 02/29/24 Chief Complaint: IUP at 38-1/7 weeks, gestational hypertension 29-year-old 4 para 1-0-2-1 at 38-1/7 weeks presents to labor and delivery from the office after noted elevated blood pressures 140s over 86 with noted had a headache. Patient states she did have an elevated blood pressure at home 150/100. Patient states she had a headache at that time as well. Patient has a history of a primary and wishes repeat. Patient has been receiving routine care that has been essentially uncomplicated up to this point. Patient notes good movement, she denies vaginal bleeding or loss of fluid. On blood work this patient has a blood type of O+, rubella status immune, hepatitis B surface engine negative, HIV negative, RPR is nonreactive, grew beta strep culture is negative. Review of Systems Constitutional: Denies chills, Denies fatigue, Denies fever Ears, nose, mouth and throat: Reports headache Cardiovascular: Reports leg edema Respiratory: Denies dyspnea Gastrointestinal: Denies nausea, Denies vomiting Genitourinary: Reports Past Medical History Past Medical History: No Reported History History of Any Multi-Drug Resistant Organisms: None Reported Past Surgical History: Section Additional Past Surgical History / Comment(s): wisdom teeth age 18, salivary duct Past Anesthesia/Blood Transfusion Reactions: No Reported Reaction Past Psychological History: No Psychological Hx Reported Smoking Status: Never smoker Past Alcohol Use History: None Reported Past Drug Use History: None Reported - Past Family History Mother Family Medical History: Diabetes Mellitus, Hypertension, Osteoarthritis (OA), Thyroid Disorder Father Additional Family Medical History / Comment(s): MVA Medications and Allergies Home Medications Medication Instructions Recorded Confirmed Type Multivitamins, Thera [Multivitamin 1 tab PO DAILY 06/26/19 02/29/24 History (formulary)] Allergies Allergy/AdvReac Type Severity Reaction Status Date / Time cephalexin [From Keflex] Allergy Rash/Hives Verified 02/29/24 15:36 Exam Osteopathic Statement: *. No significant issues noted on an osteopathic structu ral exam other than those noted in the History and Physical/Consult. Vital Signs Temp Pulse Resp BP Pulse Ox 02/29/24 16:04 97.9 F 102 H 16 140/85 97 Intake and Output 02/29/24 02/29/24 02/29/24 06:59 14:59 22:59 Other: Weight 123.831 kg Targeted physical exam is performed this date General is a well-nourished well- developed female in no acute distress, breathing is noted to be nonlabored, heart has a regular and rhythm, abdomen is gravid and appropriate for gestational age, cervical exam is deferred, heart tones are noted to be category 1 and she is not chad. Results Result Diagrams: 02/29/24 15:56 02/29/24 15:52 Abnormal Lab Results - Last 24 Hours (Table) 02/29/24 02/29/24 Range/Units 15:52 15:56 WBC 11.2 H (3.8-10.6) k/uL Neutrophils # 8.8 H (1.3-7.7) k/uL PT 9.5 L (10.0-12.5) sec Assessment and Plan (1) Term Current Visit: Yes Status: Acute Code(s): Z34.90 - ENCNTR FOR SUPRVSN OF NORMAL , UNSP, UNSP TRIMESTER SNOMED Code(s): 19854058 (2) Gestational hypertension Current Visit: Yes Status: Acute Code(s): O13.9 - GESTATIONAL HTN W/O SIGNIFICANT PROTEINURIA, UNSP TRIMESTER SNOMED Code(s): 32252400 (3) History of section Current Visit: Yes Status: Acute Code(s): Z98.891 - HISTORY OF UTERINE SCAR FROM PREVIOUS SURGERY SNOMED Code(s): 985486844 Plan: 29-year-old -0-2-1 at 38-1/7 weeks presents to the hospital from the office for repeat section. Patient has had elevated blood pressures at home elevated in the office 140/86. Patient does admit to headache. Patient is counseled on gestational hypertension and need for delivery given his symptomatology. Patient states understanding. Patient is counseled on repeat section. Risks are reviewed including but not limited to infection, bleeding, damage to bladder, bowel, injury. Patient states understanding, anesthesia is notified. Will proceed with repeat section.
[2024-02-29] MEDS ORDERED: SIMETHICONE 80 MG CHEWABLE PO PRN (18:57)
[2024-02-29] MEDS ORDERED: ONDANSETRON 4 MG/2 ML VIAL IVP PRN (18:57)
[2024-02-29] MEDS ORDERED: ZOLPIDEM 5 MG TAB PO PRN (18:57)
[2024-02-29] MEDS ORDERED: diphenhydrAMINE 50 MG CAP PO PRN (18:57)
[2024-02-29] MEDS ORDERED: NALOXONE 0.4 MG/ML 1 ML VIAL IV PRN ×2 (18:57→19:37)
[2024-02-29] MEDS ORDERED: diphenhydrAMINE 25 MG CAP PO PRN (18:57)
[2024-02-29] MEDS ORDERED: diphenhydrAMINE 50 MG/ML 1 ML VIAL IVP PRN (18:57)
[2024-02-29] MEDS: ACETAMINOPHEN IV (For NPO) 1,000 MG in EMPTY BAG 1 BAG IVPB SCH (20:07)
[2024-02-29] MEDS: ACETAMINOPHEN TAB 500 MG TAB PO SCH (20:25)
[2024-02-29] MEDS: METOCLOPRAMIDE 5 MG/ML 2 ML VIAL IVP PRN (20:50)
[2024-02-29] MEDS: SENNOSIDES-DOCUSATE SODIUM 1 EACH TAB PO SCH (21:29)
[2024-02-29 22:09] LABS: Creatinine,Urine Random 21.6 mg/dL; Protein/Creatinine Ratio,Urine 0.509
[2024-02-29] MEDS: IBUPROFEN 600 MG TAB PO SCH (23:45)
[2024-02-29] MEDS: IBUPROFEN IV 800 MG in SODIUM CHLORIDE 0.9% 250 ML IV SCH (23:59)
[2024-03-01] MEDS: diphenhydrAMINE 50 MG/ML 1 ML VIAL IVP PRN (01:06)
[2024-03-01 07:21] LABS: Basophils % (A) 0 %; Eosinophils % (A) 0 %; HCT 37.1 % (34.0-46.0); Lymphocytes # (A) 1.2 k/uL (1.0-4.8); Lymphocytes % (A) 12 %; MCH 28.6 pg (25.0-35.0); MCHC 32.3 g/dL (31.0-37.0); MCV 88.5 fL (80.0-100.0); Mean Platelet Volume 9.1; Monocytes # (A) 0.4 k/uL (0-1.0); Monocytes % (A) 4 %; Neutrophils # (A) 8.2 k/uL (1.3-7.7); Neutrophils % (A) 83 %; Platelet Count 216 k/uL (150-450); RDW 13.6 % (11.5-15.5); WBC 9.9 k/uL (3.8-10.6)
[2024-03-01] MEDS: MULTIVITAMINS, THERA 1 EACH TAB PO SCH (09:26)
--- NOTE | 2024-03-01 09:45 | P.PNOBGPC ---
Subjective - Subjective Principal diagnosis: Postop day 1, repeat section, gestational hypertension Interval history: Patient is doing well postoperatively. She is ambulating and voiding without difficulty. She is tolerating a regular diet without nausea or vomiting. She denies concerns this morning. Positive flatus. Patient reports: Reports appetite normal, Reports voiding normally, Reports pain well controlled, Reports ambulating normally [place]: doing well Objective - Vital Signs Latest vital signs: Vital Signs Temp Pulse Resp BP Pulse Ox 03/01/24 08:12 98.4 F 90 14 111/90 03/01/24 06:00 16 03/01/24 04:00 98.0 F 92 17 111/78 96 03/01/24 02:00 16 03/01/24 00:14 96 03/01/24 00:00 97.9 F 70 16 138/71 96 02/29/24 22:57 90 16 02/29/24 22:37 16 02/29/24 20:57 90 16 107/58 97 02/29/24 20:42 96.8 F L 88 16 105/58 96 02/29/24 20:27 88 16 117/57 96 02/29/24 20:12 97.4 F L 86 16 117/60 97 02/29/24 19:57 86 16 121/60 97 02/29/24 19:42 97.5 F L 86 16 119/59 97 02/29/24 19:27 83 16 121/58 96 02/29/24 19:12 97.5 F L 83 16 117/61 96 02/29/24 18:56 97.1 F L 92 16 129/75 97 02/29/24 16:04 97.9 F 102 H 16 140/85 97 Intake and Output 02/29/24 03/01/24 03/01/24 22:59 06:59 14:59 Intake Total 700 Output Total 810 200 Balance -110 -200 Intake: IV 700 Output: Urine 450 200 Uretheral (Armijo) 200 Output, Quantitative 360 Blood Loss Other: Voiding Method Toilet Weight 123.831 kg - Exam Extremities: Present: normal Abdomen: Present: normal appearance Incision: Present: normal, dry, intact Uterus: Present: normal, firm - Labs Labs: Abnormal Lab Results - Last 24 Hours (Table) 04/04/24 04/04/24 04/04/24 Range/Units 15:52 15:53 15:56 WBC 11.2 H (3.8-10.6) k/uL Neutrophils # 8.8 H (1.3-7.7) k/uL PT 9.5 L (10.0-12.5) sec Urine Appearance Cloudy H (Clear) Ur Leukocyte Esterase Trace H (Negative) Urine WBC 6 H (0-5) /hpf Ur Squamous Epith Cells 18 H (0-4) /hpf Urine Bacteria Rare H (None) /hpf Urine Mucus Rare H (None) /hpf 04// Range/Units 06:40 WBC (3.8-10.6) k/uL Neutrophils # 8.2 H (1.3-7.7) k/uL PT (10.0-12.5) sec Urine Appearance (Clear) Ur Leukocyte Esterase (Negative) Urine WBC (0-5) /hpf Ur Squamous Epith Cells (0-4) /hpf Urine Bacteria (None) /hpf Urine Mucus (None) /hpf Assessment and Plan (1) Term Current Visit: Yes Status: Acute Code(s): Z34.90 - ENCNTR FOR SUPRVSN OF NORMAL , UNSP, UNSP TRIMESTER SNOMED Code(s): 15593244 (2) Gestational hypertension Current Visit: Yes Status: Acute Code(s): O13.9 - GESTATIONAL HTN W/O SIGNIFICANT PROTEINURIA, UNSP TRIMESTER SNOMED Code(s): 10287798 (3) History of section Current Visit: Yes Status: Acute Code(s): Z98.891 - HISTORY OF UTERINE SCAR FROM PREVIOUS SURGERY SNOMED Code(s): 069913100 (4) Status post section Current Visit: Yes Status: Acute Code(s): Z98.891 - HISTORY OF UTERINE SCAR FROM PREVIOUS SURGERY SNOMED Code(s): 483840932 Plan: Patient is doing well postoperatively. Plan to continue routine postoperative care and anticipate discharge home tomorrow.
--- NOTE | 2024-03-01 11:07 | P.PN ---
Progress Note - Text Progress Note Date: 03/01/24 Postoperative day 1 status post section under spinal anesthesia, and intrathecal morphine given for postoperative analgesia, patient doing well, there is no anesthesia related complications, Patient had no headache, vital signs stable , Assessment and plan= postop day 1 status post , doing well there is no anesthesia related complication.
[2024-03-01 21:01] VITALS: RESP 16
[2024-03-02 08:54] VITALS: BP 132/84; PULSE 88; TEMP 97.8
--- NOTE | 2024-03-02 09:30 | P.DS ---
Providers Date of admission: 02/29/24 14:59 Expected date of discharge: 03/02/24 Attending physician: Dione Tilley Primary care physician: Dione Tilley - Discharge Diagnosis(es) (1) Term Current Visit: Yes Status: Acute (2) Gestational hypertension Current Visit: Yes Status: Acute (3) History of section Current Visit: Yes Status: Acute (4) Status post section Current Visit: Yes Status: Acute Hospital Course: 29-year-old G4 now P2022 that presented to labor and delivery at 37-1/7 weeks for repeat section. Patient had been monitoring blood pressures, blood pressure was noted to be 150/100 at home patient admitted to a headache in addition. Patient's blood pressure in the office 140s over 90s. Patient was counseled for repeat section secondary to diagnosis of gestational hypertension. For full details in this patient please see the dictated history and physical. Patient was admitted and repeat section was completed without difficulty. For full details on the please see the dictated operative report. Patient delivered a viable female via vacuum assist at 1822, weight of 6 pounds 8 ounces, Apgars of 8 and 9 at 1 and 5 minutes respectively. Patient has done well postoperatively. On this postoperative day #2 she is ambulating and voiding without difficulty. She is tolerating a regular diet without nausea or vomiting. States her pain is well-controlled. She denies concerns and would like discharge home. Patient Condition at Discharge: Good Plan - Discharge Summary New Discharge Prescriptions: No Action Multivitamins, Thera [Multivitamin (formulary)] 1 tab PO DAILY Discharge Medication List Multivitamins, Thera [Multivitamin (formulary)] 1 tab PO DAILY 06/26/19 [History] Follow up Appointment(s)/Referral(s): Dione Tilley DO [Primary Care Provider] - 2 Weeks Patient Instructions/Handouts: (DC), (GEN) Activity/Diet/Wound Care/Special Instructions: No intercourse, tampons or douching. No heavy lifting greater than a gallon of milk. No driving for two weeks. Call with any fever, shakes or chills, with any pain not alleviated by over the counter meds, or with any quesions or concerns. Discharge Disposition: HOME SELF-CARE
== END 2024-03-02 12:30 | disposition home or self-care (01) | DRG 788 ==
LOC: 4FBP 14:59
PROVIDERS: ADMIT Obstetrics & Gynecology Obstetrics; ATTEND Obstetrics & Gynecology Obstetrics
PROC: 10D00Z1 Extraction of Products of Conception, Low, Open Approach (ICD-10-PCS; principal; 2024-02-29 18:16)
DX: O13.4 Gestational [pregnancy-induced] hypertension without significant proteinuria, complicating childbirth (principal); O34.211 Maternal care for low transverse scar from previous cesarean delivery; Z37.0 Single live birth; Z88.8 Allergy status to other drugs, medicaments and biological substances; Z3A.38 38 weeks gestation of pregnancy
CPT/HCPCS: 81001; 82565; 82570; 83615; 84156; 84450; 84460; 84520; 84550; 85025; 85610; 85730; 86850; 86900; 86901; 88307

== ENCOUNTER → 2024-08-05 | Outpatient (CLI) | payer OTHER ==
--- NOTE | 2024-08-05 15:01 | XR ---
Left ankle. HISTORY: Pain. COMPARISON: None. TECHNIQUE: 3 views left ankle were obtained. FINDINGS: There is no fracture, dislocation, intraosseous, intra-articular soft tissue abnormality. The ankle m ortise is intact. IMPRESSION: No significant abnormality seen.
--- NOTE | 2024-08-05 15:03 | XR ---
Left foot HISTORY: Pain. COMPARISON: None. TECHNIQUE: 3 views of left foot were obtained. FINDINGS: There is no fracture, dislocation, interosseous, intra-articular soft tissue abnormality. IMPRESSION: No significant abnormality seen. No evidence of acute trauma.
== END | disposition home or self-care (01) ==
LOC: RADXRMAIN 14:08
PROVIDERS: ATTEND Emergency Medicine
DX: S93.402A Sprain of unspecified ligament of left ankle, initial encounter (principal); S93.602A Unspecified sprain of left foot, initial encounter; X58.XXXA Exposure to other specified factors, initial encounter